=== PATIENT | female | born 1975 | race Caucasian/White ===

== ENCOUNTER 2017-01-05 12:25 | Emergency (ER) | payer OTHER ==
[~2017-01-05 12:25] MED LIST: COLACE100 MG PO; FEOSOL325 MG PO; LITHIUM300 MG PO; MAXALT10 MG PO; MIRAPEX0.25 MG PO; MOTRIN600 MG PO; NEURONTIN300 MG PO; PERCOCET 5/3251 TAB PO; PROTONIX 40MG T40 MG PO; TOPAMAX100 MG PO; ZANAFLEX4 MG PO
== END 2017-01-05 15:11 | disposition home or self-care (01) ==
LOC: FER 12:25
DX: J40 Bronchitis, not specified as acute or chronic (principal); Z88.8 Allergy status to other drugs, medicaments and biological substances
CPT/HCPCS: 71020; 86756; 87450; 87804; 87899; 99283

== ENCOUNTER 2017-01-14 19:01 | Emergency (ER) | payer OTHER | END 2017-01-14 21:37 | disposition home or self-care (01) | LOC: FER 19:01 | DX: S46.811A Strain of other muscles, fascia and tendons at shoulder and upper arm level, right arm, initial encounter (principal); G43.909 Migraine, unspecified, not intractable, without status migrainosus; K21.9 Gastro-esophageal reflux disease without esophagitis; Z98.84 Bariatric surgery status; Z98.890 Other specified postprocedural states; V86.99XA Unspecified occupant of other special all-terrain or other off-road motor vehicle injured in nontraffic accident, initial encounter; Y92.009 Unspecified place in unspecified non-institutional (private) residence as the place of occurrence of the external cause | CPT/HCPCS: 73000; 73030; 99283 ==

== ENCOUNTER 2017-01-19 15:12 | Emergency (ER) | payer OTHER | END 2017-01-19 18:20 | disposition home or self-care (01) | LOC: FER 15:12 | DX: S93.401A Sprain of unspecified ligament of right ankle, initial encounter (principal); M54.2 Cervicalgia; M25.551 Pain in right hip; M54.5 Low back pain; F17.200 Nicotine dependence, unspecified, uncomplicated; Z87.81 Personal history of (healed) traumatic fracture; V47.5XXA Car driver injured in collision with fixed or stationary object in traffic accident, initial encounter; Y92.410 Unspecified street and highway as the place of occurrence of the external cause | CPT/HCPCS: 73610; 99283 ==